=== PATIENT | female | born 1955 | race Caucasian/White ===

== ENCOUNTER 2024-09-17 16:34 | Observation (INO) | payer OTHER ==
--- OUTSIDE RECORDS SUMMARY | 2024-09-17 16:37 | XMS REPORT | Continuity of Care Document ---
Author Name Unknown Address [address] [place] [address] [place] [address] [place] [id number] Care Team Providers Care Investigative Assistant Name Role Phone Robbin Weathers Attending Clinician Unavailable Encounters Start Date/Time End Date/Time Encounter Type Admission Type Attending Clinicians Care Facility Care Department Encounter ID Source 2024-06-21 14:43:01 Outpatient Robbin Weathers [facility] [id number] [facility]
[2024-09-17 17:21] LABS: Specific Gravity 1.024 (1.005-1.030); Urine Bilirubin NEGATIVE (Negative); Urine Blood Negative (Negative); Urine Clarity Clear (Clear); Urine Color Light-Yellow (Yellow); Urine Glucose NEGATIVE (Negative); Urine Ketones NEGATIVE (Negative); Urine Microscopic Reflex YN NO UMIC; Urine Nitrite NEGATIVE (Negative); Urine Protein NEGATIVE (Negative); Urine Urobilinogen Normal (Normal)
--- NOTE | 2024-09-17 19:02 | RAD REPORT ---
EXAMINATION: ONE VIEW CHEST XR CLINICAL INDICATION: PALPITATIONS TECHNIQUE: Frontal chest projection is submitted. Examination is limited by patient positioning and t echnique. COMPARISON: No prior exam. FINDINGS: The lungs are well inflated and clear. The heart is upper limit of normal in size. No displaced fract ures identified.
[2024-09-17 19:15] LABS: Absolute Basophils 0.1 K/uL (0-0.5); Absolute Eosinophils 0.3 K/uL (0-0.5); Absolute Lymphocytes (CBC) 1.7 K/uL (0.7-4.9); Absolute Monocytes 0.6 K/uL (0.1-1.3); Absolute Neutrophil 3.5 K/uL (1.8-8.0); Eosinophils % 5.3 % (0-4.4); Hematocrit 37.8 % (36.0-45.0); Lymphocytes % 26.7 % (15.3-44.8); MCH 28.5 pg (27.0-35.0); MCHC 34.5 g/dL (32.0-36.0); MCV 82.8 fL (80-100); MPV 7.8 fL (7.6-11.3); Monocytes % 10.5 % (3.3-12.3); Neutrophils % 56.5 % (41.7-73.7); Nucleated Red Blood Cells % 0.1 % (0-0); Platelets 341 thou/uL (152-406); RBC Red Blood Cell Count 4.57 M/uL (3.86-4.86); Red Cell Distribution Width 14.4 % (12.1-15.2)
[2024-09-17 19:35] LABS: ALT/SGPT 22 U/L (13-56); AST/SGOT 18 U/L (15-37); Albumin 3.7 g/dL (3.4-5.0); Albumin/Globulin Ratio 0.9 (1.1-1.8); Alkaline Phosphatase 156 U/L (45-117); Anion Gap 8.3 mEq/L (5.0-15.0); BUN Blood Urea Nitrogen 21 mg/dL (7-18); Bicarbonate 28 mEq/L (21-32); Bilirubin Total 0.3 mg/dL (0.2-1.0); Globulin 4.2 g/dL (2.3-3.5); Glomerular Filtration Rate 48 ml/min (=/>90); Glucose Level 107 mg/dL (74-106); Magnesium 2.2 mg/dL (1.6-2.4); NT PRO-BNP 265 pg/mL (<125); Potassium 4.3 mEq/L (3.5-5.1); Protein, Total 7.9 g/dL (6.4-8.2); Sodium Level 138 mEq/L (136-145); Troponin High Sensitivity 10.3 pg/mL (<58.9)
[2024-09-17 19:36] LABS: Bilirubin Direct < 0.2 mg/dL (0-0.2); Bilirubin Indirect, Calculated 0.1 mg/dL (0.2-0.8)
--- NOTE | 2024-09-17 20:23 | EDPHYS ---
Physician Documentation [facility] Name: Alyssa Ford Age: 69 yrs Sex: Female : 1955 Arrival Date: 09/17/2024 Time: 16:34 Bed 23 Private MD: ED Physician Negrito Khan HPI: 09/17 16:49 This 69 yrs old Female presents to ER via Unassigned with complaints of Palpitations, kb Shortness Of Breath, Shoulder Pain, Armpit Pain. 16:49 Pt is a 69 year old female who presents for palpitations, fatigue and intermittent kb chest pain that has been ongoing for 3-4 weeks. States she was seen by [facility] last week, had a holter monitor placed 3-4 days ago. States the symptoms have been increased today. STates she had an echo and EKG in the office. Stress test is scheduled for September 21. States she has been getting flushed/lightheaded upon standing today so she wanted to come make sure everything was ok. . Historical: - Allergies: 17:04 Levaquin; me1 - PMHx: 17:04 Hypertensive disorder; Hypercholesterolemia; me1 17:07 Arthritis; me1 - PSHx: 17:04 Operative procedure on knee; back fusion; excision of skin cancer; me1 - Immunization history:: Adult Immunizations up to date. - Infectious Disease History:: Denies. ROS: 16:49 Constitutional: As per HPI kb Exam: 16:49 Constitutional: This is a well developed, well nourished patient who is awake, alert, kb and in no acute distress. Head/Face: Normocephalic, atraumatic. ENT: Moist Mucous membranes Cardiovascular: Regular rate Respiratory: Respirations even and unlabored. No increased work of breathing. Talking in full sentences Skin: Warm, dry with normal turgor. Normal color. MS/ Extremity: Pulses equal, no cyanosis. Neurovascular intact. Full, normal range of motion. Neuro: Awake and alert, GCS 15, oriented to person, place, time, and situation. Vital Signs: 17:01 BP 190 / 96; Pulse 78; Resp 18; Temp 98.2; Pulse Ox 97% ; Weight 124.74 kg; Height 5 me1 ft. 7 in. ; Pain /10; 09/18 00:20 BP 170 / 85 Supine; Pulse 74; Resp 17 S; Pulse Ox 97% on R/A; ha1 :27 BP 180 / 89 Sitting; Pulse 77; Resp 19 S; Pulse Ox 98% on R/A; ha1 09/17 17:01 Body Mass Index 43.07 (124.74 kg, 170.18 cm) tn1 09/17 17:01 Pain Scale: [place] [facility] [place]DM: 09/17 16:48 Medical Screening Exam initiated kb 17:49 Data reviewed: vital signs, nurses notes. Transition of care: After a detail discussion kb of the patient's case, [facility] ED course: Spoke with Dr. Katz about case. Recommended admission observation dr5 overnight. Discussed case with Dr. Peterson who will go ahead and order stress test for tomorrow morning.. 09/17 16:52 Order name: Basic Metabolic Panel; Complete Time: 19:37 kb 09/17 16:52 Order name: CBC with Diff; Complete Time: 19:27 kb 09/17 16:52 Order name: LFT's; Complete Time: 19:37 kb 09/17 16:52 Order name: Magnesium; Complete Time: 19:37 kb 09/17 16:52 Order name: NT PRO-BNP; Complete Time: 19:37 kb 09/17 16:52 Order name: Troponin HS; Complete Time: 19:37 kb 09/17 16:54 Order name: Urinalysis w/ reflexes; Complete Time: 17:25 kb 09/17 21:05 Order name: Basic Metabolic Panel [facility] 09/17 21:05 Order name: Basic Metabolic Panel; Complete Time: 11:17 EDWA 09/17 21:05 Order name: CBC with Automated Diff EDWA 09/17 21:05 Order name: CBC with Automated Diff; Complete Time: 11:17 EDWA 09/17 21:05 Order name: Lipid Profile [facility] 09/17 21:05 Order name: Lipid Profile; Complete Time: 11:17 EDWA 09/17 21:05 Order name: Troponin High Sensitivity [facility] 09/17 21:05 Order name: Troponin High Sensitivity; Complete Time: 11:17 EDWA 09/17 21:05 Order name: Troponin High Sensitivity [facility] 09/17 21:05 Order name: Troponin High Sensitivity [facility] 09/17 16:52 Order name: XRAY Chest (1 view); Complete Time: 19:02 kb 09/18 11:16 Order name: NM; Complete Time: 11:17 EDMS 09/17 16:52 Order name: EKG; Complete Time: 16:52 kb 09/17 21:05 Order name: CONS Physician Consult EDWA 09/17 16:52 Order name: Cardiac monitoring; Complete Time: 03:01 kb 09/17 16:52 Order name: EKG - Nurse/Tech; Complete Time: 21:44 kb 09/17 16:52 Order name: IV Saline Lock; Complete Time: 19:12 kb 09/17 16:52 Order name: Labs collected and sent; Complete Time: 19:12 kb 09/17 16:52 Order name: O2 Per Protocol; Complete Time: 19:12 kb 09/17 16:52 Order name: O2 Sat Monitoring; Complete Time: 19:12 kb 09/17 16:52 Order name: Orthostatics; Complete Time: 03:01 kb EC:26 Rate is 73 beats/min. Rhythm is regular. QRS Panther is Normal. UT interval is normal at dr5 144 msec. QRS interval is normal at 90 msec. QT interval is normal at 404 msec. Administered Medications: No medications were administered Disposition Summary: 09/17/24 20:22 Hospitalization Ordered Notes: Hospitalization Status: Inpatient Admission dr5 Provider: Rubina Peterson Condition: Stable dr5 Problem: new dr5 Symptoms: are unchanged dr5 Bed/Room Type: Standard dr5 Location: [facility] ER HOLD(09/17/24 22:04) Room Assignment: ERHOLD-(09/17/24 22:04) cg Diagnosis - Chest pain, unspecified dr5 Forms: - Medication Reconciliation Form dr5 - SBAR form dr5 - Leadership Thank You Letter dr5 Addendum: 09/24/2024 21:42 Co-signature as Attending Physician, Negrito Khan MD I agree with the assessment and c osman plan of care. Signatures: Dispatcher [employer] Dora Leyva, DRY TRANSFER WORKER-C DRY TRANSFER WORKER-Ckb Negrito Khan MD MD cha Garcia, Cindy, RN RN Farida Jacob RN RN tn1 Syd Arce, ROSIO-Adan DRY TRANSFER WORKER-Cdr5 Corrections: (The following items were deleted from the chart) 09/17 16:53 16:52 BASIC METABOLIC PANEL+C.LAB.BRZ ordered. EDMS EDMS 16:53 16:52 CBC+H.LAB.BRZ ordered. EDMS EDMS 16:53 16:52 HEPATIC FUNCTION+C.LAB.BRZ ordered. EDMS EDMS 16:53 16:52 MAGNESIUM+C.LAB.BRZ ordered. EDMS EDMS 16:53 16:52 PROBNP+C.LAB.BRZ ordered. EDMS EDMS 16:53 16:52 Troponin High Sensitivity+C.LAB.BRZ ordered. EDMS EDMS 16:55 16:54 Urinalysis+U.LAB.BRZ ordered. EDMS EDMS 22:04 20:22 Telemetry/MedSurg (observation) dr5 cg 22:04 20:22 dr5 cg
--- NOTE | 2024-09-17 20:23 | ER ---
Nurse's Notes [facility] Name: Alyssa Ford Age: 69 yrs Sex: Female : 1955 Arrival Date: 09/17/2024 Time: 16:34 Bed 23 Private MD: Diagnosis: Chest pain, unspecified Presentation: 09/17 17:01 Chief complaint: Patient states: for the past few weeks she has had palpitations, sob, me1 with left shoulder and left axilla pain that is intermittent. Currently under the care of [facility] with a monitor on but states she continues to feel less like herself with more frequent pain and palpitations. Coronavirus screen: Vaccine status: Patient reports receiving the 2nd dose of the covid vaccine. Ebola Screen: No symptoms or risks identified at this time. Initial Sepsis Screen: Does the patient meet any 2 criteria? No. Patient's initial sepsis screen is negative. Does the patient have a suspected source of infection? No. Patient's initial sepsis screen is negative. Risk Assessment: Do you want to hurt yourself or someone else? Patient reports no desire to harm self or others. Onset of symptoms is unknown. 17:01 Method Of Arrival: Ambulatory me1 17:01 Acuity: MANDY 3 me1 Historical: - Allergies: 17:04 Levaquin; me1 - PMHx: 17:04 Hypertensive disorder; Hypercholesterolemia; me1 17:07 Arthritis; me1 - PSHx: 17:04 Operative procedure on knee; back fusion; excision of skin cancer; me1 - Immunization history:: Adult Immunizations up to date. - Infectious Disease History:: Denies. Screenin/28 03:02 [facility] ED Fall Risk Assessment (Adult) History of falling in the last 3 months, ha1 including since admission No falls in past 3 months (0 pts) Confusion or Disorientation No (0 pts) Intoxicated or Sedated No (0 pts) Impaired Gait Yes (1 pt) Mobility Assist Device Used Yes (1 pt) Altered Elimination No (0 pt) Score/Fall Risk Level 3 or more points = High Risk Oriented to surroundings, Maintained a safe environment, Educated pt \T\ family on fall prevention, incl call for assistance when getting out of bed, Hourly rounding (assess needs \T\ fall precautionary measures) done. Abuse screen: Denies threats or abuse. Denies injuries from another. Nutritional screening: No deficits noted. Tuberculosis screening: No symptoms or risk factors identified. Assessment: 09/17 19:50 General: Appears comfortable, Behavior is calm, cooperative. Pain: Denies pain. Neuro: ha1 Level of Consciousness is awake, alert, obeys commands, Oriented to person, place, time, situation. Cardiovascular: Reports palpitations, Capillary refill < 3 seconds Patient's skin is warm and dry. Rhythm is regular. Respiratory: Airway is patent Respiratory effort is even, unlabored, Respiratory pattern is regular, symmetrical, Breath sounds are clear bilaterally. GI: Abdomen is round non-distended, obese. : No signs and/or symptoms were reported regarding the genitourinary system. Derm: Skin is pink, warm \T\ dry. Musculoskeletal: Circulation, motion, and sensation intact. 22:00 Reassessment: Patient and/or family updated on plan of care and expected duration. Pain ha1 level reassessed. Patient is alert, oriented x 3, equal unlabored respirations, skin warm/dry/pink. 23:00 Reassessment: Patient and/or family updated on plan of care and expected duration. Pain ha1 level reassessed. Patient is alert, oriented x 3, equal unlabored respirations, skin warm/dry/pink. Vital Signs: 17:01 BP 190 / 96; Pulse 78; Resp 18; Temp 98.2; Pulse Ox 97% ; Weight 124.74 kg; Height 5 me1 ft. 7 in. ; Pain 4/10; 09/18 00:20 BP 170 / 85 Supine; Pulse 74; Resp 17 S; Pulse Ox 97% on R/A; ha1 00:27 BP 180 / 89 Sitting; Pulse 77; Resp 19 S; Pulse Ox 98% on R/A; ha1 09/17 17:01 Body Mass Index 43.07 (124.74 kg, 170.18 cm) il1 09/17 17:01 Pain Scale: Adult il1 ED Course: 09/17 16:39 Patient arrived in ED. cj3 16:48 Dora Tran FNP-C is PHCP. kb 16:48 Negrito Khan MD is Attending Physician. kb 17:04 Triage completed. me1 17:07 Arm band placed on Patient placed in waiting room. me1 17:50 PHCP role handed off by Dora Tran FNP-C kb 17:50 Syd Arce FNP-C is PHCP. kb 18:54 XRAY Chest (1 view) In Process Unspecified. EDMS 19:12 Basic Metabolic Panel Sent. ha1 19:13 CBC with Diff Sent. ha1 19:13 LFT's Sent. ha1 19:13 Magnesium Sent. ha1 19:13 NT PRO-BNP Sent. ha1 19:13 Troponin HS Sent. ha1 19:13 Inserted saline lock: 24 gauge in left antecubital area, using aseptic technique. Blood ha1 collected. Flushed with 10 mL NS. 19:28 EKG done, by ED staff, reviewed by Syd MUNOZ. oe 19:37 Kathryn Nick, RN is Primary Nurse. ha1 20:00 Patient has correct armband on for positive identification. Bed in low position. Call ha1 light in reach. Side rails up X 1. Adult w/ patient. 20:22 Rubina Peterson MD is Hospitalizing Provider. dr5 21:37 Door closed. Noise minimized. Warm blanket given. Pillow given. Verbal reassurance rv1 given. 09/18 02:00 No provider procedures requiring assistance completed. ha1 02:00 Patient admitted, IV remains in place. ha1 06:46 Inserted saline lock: 24 gauge in right forearm, using aseptic technique. Blood oe collected. Flushed with 10 mL NS. Administered Medications: No medications were administered Outcome: 09/17 20:22 Decision to Hospitalize by Provider. dr5 09/18 13:04 Patient left the ED. cm10 Signatures: Dispatcher [employer] EDMS Dora Tran FNP-C FNP-Ckb Tanner Lizama oe Kathryn Nick RN JOAO ha1 Inna Shaw rv1 Radha Oro RN RN cm10 Farida Jacob RN RN il1 Syd Arce FNP-C FNP-[facility]5 Jennifer [place] 3 Corrections: (The following items were deleted from the chart) 04:08 00:20 BP 170 / 85; Pulse 74bpm; Resp 17bpm; Spontaneous; Pulse Ox 97% RA; ha1 ha1 04:08 00:27 BP 180 / 89; Pulse 77bpm; Resp 19bpm; Spontaneous; Pulse Ox 98% RA; ha1 ha1
[2024-09-17] MEDS ORDERED: ALPRAZOLAM 0.25 MG TABLET PO PRN (20:59)
[2024-09-17] MEDS ORDERED: ACETAMINOPHEN 500 MG TAB PO PRN (20:59)
[2024-09-17] MEDS: AMLODIPINE 5 MG TAB PO ONE (20:59)
[2024-09-17] MEDS ORDERED: MORPHINE 4 MG/ML SYR IV PRN (20:59)
[2024-09-17] MEDS: ATORVASTATIN 40 MG TAB PO SCH (21:00)
--- NOTE | 2024-09-17 21:13 | P.HP ---
Certification for Inpatient Patient admitted to: Observation With expected LOS: <2 Midnights Patient will require the following post-hospital care: None Practitioner: I am a practitioner with admitting privileges, knowledge of patient current condition, hospital course, and medical plan of care. Services: Services provided to patient in accordance with Admission requirements found in Title 42 Section 412.3 of the Code of Federal Regulations Patient History Date of Service: 09/17/24 Reason for admission: Chest pain rule out acute coronary syndrome History of Present Illness: Patient is a 69-year-old female who came to the hospital with chest discomfort. Patient has been having palpitations and she was seen by cardiology a week ago and a Holter monitor and a stress test was ordered as well as an echocardiogram. Patient states she had been doing fairly well but she felt like her symptoms were more frequent so she came to the emergency room. In the ER patient's vital signs are stable hemodynamics are stable blood work is unremarkable. EKG did not show any acute pathology. Nurse practitioner spoke to the director of accounts receivable who wanted to put the patient in for observation. Patient has a history of SVT. She also has been diagnosed with PVCs in the past. However, she did not have any symptoms and she was treated conservatively. Patient is also recently retired from an office job. She has had more time on her hand and she wanted to make sure she was okay and did not want to miss anything concerning. She appears to have a little bit of anxiety regarding her symptoms.. At this time we will repeat labs and will get stress test in AM. If this is negative patient should be stable for discharge home. - Past Medical/Surgical History -: SVT -: Arthritis - Family History Father Family History: Reviewed- Non-Contributory - Social History Smoking Status: Former smoker Alcohol use: No CD- Drugs: No Review of Systems 10-point ROS is otherwise unremarkable Physical Examination - Vital Signs Temperature: 98 F Blood Pressure: 140/90 Pulse: 80 Respirations: 18 Pulse Ox (%): 95 - Physical Exam General: Alert, In no apparent distress, Oriented x3 HEENT: Atraumatic, PERRLA, Mucous membr. moist/pink, EOMI, Sclerae nonicteric Neck: Supple, 2+ carotid pulse no bruit, No LAD, Without JVD or thyroid abnormality Respiratory: Clear to auscultation bilaterally, Normal air movement Cardiovascular: Regular rate/rhythm, Normal S1 S2 Gastrointestinal: Normal bowel sounds, Soft and benign, Non-distended, No tenderness Musculoskeletal: No clubbing, No swelling, No tenderness Integumentary: No rashes Neurological: Normal gait, Normal speech, Normal strength at 5/5 x4 extr, Normal tone, Sensation intact, Cranial nerves 3-12 intact, Normal affect Lymphatics: No axilla or inguinal lymphadenopathy - Studies Laboratory Data (last 24 hrs) 09/17/24 09/17/24 19:08 19:08 WBC 6.20 Hgb 13.0 Hct 37.8 Plt Count 341 Sodium 138 Potassium 4.3 BUN 21 H Creatinine 1.22 H Glucose 107 H Magnesium 2.2 Total Bilirubin 0.3 AST 18 ALT 22 Alkaline Phosphatase 156 H Assessment & Plan - Problems (Diagnosis) (1) Chest pain, rule out acute myocardial infarction Current Visit: Yes Status: Acute (2) PVCs (premature ventricular contractions) Current Visit: Yes Status: Acute - Plan -High-sensitivity troponin will be repeated -Cardiology consultation -Echocardiogram done at outside cardiology office and will do stress test in a.m. -Repeat EKG and monitor on telemetry -Work-up for other etiologies of cardiac chest pain if troponins remain negative; she says she has a lot of pressure in her upper body including her shoulder and upper back. She will need further follow-up for this. -Lipid profile in a.m. -Medication Nurse regarding modifying risk for cardiac disease Discharge Plan: Home Plan to discharge in: 24 Hours - Advance Directives Does patient have a Living Will: No Does patient have a Durable POA for Healthcare: No - Code Status/Comfort Care Code Status Assessed: Yes Code Status: Full Code Critical Care: No Time Spent Managing PTS Care (In Minutes): 45
[2024-09-17 22:14] VITALS: BMI 44.4
[2024-09-18] MEDS ORDERED: MORPHINE 4 MG/ML SYR IV PRN (01:07)
[2024-09-18 06:46] LABS: Absolute Basophils 0.1 K/uL (0-0.5); Absolute Eosinophils 0.3 K/uL (0-0.5); Absolute Lymphocytes (CBC) 1.7 K/uL (0.7-4.9); Absolute Monocytes 0.6 K/uL (0.1-1.3); Absolute Neutrophil 2.9 K/uL (1.8-8.0); Basophils % 0.9 % (0-1.3); Eosinophils % 5.9 % (0-4.4); Hematocrit 38.5 % (36.0-45.0); Hemoglobin 12.6 g/dL (12.0-15.0); MCH 27.6 pg (27.0-35.0); MCHC 32.9 g/dL (32.0-36.0); MCV 84.1 fL (80-100); MPV 7.8 fL (7.6-11.3); Monocytes % 10.4 % (3.3-12.3); Neutrophils % 51.8 % (41.7-73.7); Platelets 328 thou/uL (152-406); RBC Red Blood Cell Count 4.57 M/uL (3.86-4.86); Red Cell Distribution Width 14.2 % (12.1-15.2)
[2024-09-18 07:26] VITALS: O2SAT 98
[2024-09-18] MEDS: ASPIRIN EC 81 MG TAB PO SCH (08:59)
[2024-09-18] MEDS ORDERED: ASPIRIN EC 81 MG TAB PO SCH (09:00)
[2024-09-18] MEDS: ENOXAPARIN 40 MG/0.4 ML SQ SCH (09:00)
[2024-09-18] MEDS ORDERED: REGADENOSON 0.4 MG/5 ML SYR IV ONE (10:25)
--- NOTE | 2024-09-18 10:45 | P.CNS ---
Date of Consult: 09/18/24 Chief Complaint: Chest pain rule out acute coronary syndrome History of Present Illness: Patient with PMH of HTN, HLD, presented with palpitations that has been going on for few months, worse with exertion, also report occasional chest pain, radiate to both shoulders, denies SOB, no SINGH, no syncope. Allergies levofloxacin [From Levaquin] Allergy (Verified 09/17/24 22:12) Itching Home medications list reviewed: Yes - Past Medical/Surgical History Diabetic: No -: SVT -: Arthritis - Family History Father Family History: Reviewed- Non-Contributory - Social History Alcohol use: No CD- Drugs: No Caffeine use: Yes Review of Systems 10-point ROS is otherwise unremarkable Physical Examination Temp Pulse Resp BP Pulse Ox 97.8 F 86 17 160/98 H 98 09/18/24 07:21 09/18/24 07:21 09/18/24 07:21 09/18/24 07:21 09/18/24 07:21 General: Alert, In no apparent distress HEENT: Atraumatic, PERRLA, Mucous membr. moist/pink, EOMI, Sclerae nonicteric Neck: Supple, 2+ carotid pulse no bruit, No LAD, Without JVD or thyroid abnormality Respiratory: Clear to auscultation bilaterally, Normal air movement Cardiovascular: Regular rate/rhythm, Normal S1 S2 Gastrointestinal: Normal bowel sounds, No tenderness Musculoskeletal: No tenderness Integumentary: No rashes Neurological: Normal gait, Normal speech, Normal tone, Normal affect Lymphatics: No axilla or inguinal lymphadenopathy Laboratory Data (last 24 hrs) 09/17/24 09/17/24 19:08 19:08 WBC 6.20 Hgb 13.0 Hct 37.8 Plt Count 341 Sodium 138 Potassium 4.3 BUN 21 H Creatinine 1.22 H Glucose 107 H Magnesium 2.2 Total Bilirubin 0.3 AST 18 ALT 22 Alkaline Phosphatase 156 H - Problems (1) Palpitations Current Visit: Yes Status: Acute Plan: patient is on Norvasc, advise to stop and switch to Diltazem 120 mg po daily patient is wearing a holter monitor continue to monitor on tele (2) HTN (hypertension) Current Visit: Yes Status: Acute Plan: stop Norvasc start Diltzem 120 mg po daily continue losartan continue to monitor. (3) HLD (hyperlipidemia) Current Visit: Yes Status: Acute Plan: continue lipitor 40 mg daily. (4) Chest pain, rule out acute myocardial infarction Current Visit: Yes Status: Acute Plan: troponin negative. agree with stress test. ASA 81 mg daily
--- NOTE | 2024-09-18 11:15 | RAD REPORT ---
EXAM: Nuclear medicine cardiac perfusion examination with ejection fraction HISTORY: Chest pain Chest pain TECHNIQUE: Rest images: 10.7 mCi technetium 99m sestamibi Stress images: 30.9 mCi of technetium 99m sestamibi COMPARISON: None. FINDINGS: Tomographic images: Small fixed defect is seen LV apex on both rest and stress imaging. No finding to suspect hibernating myocardium. Ejection fraction of 58%. EDV: 108 mL ESV: 45 mL LHR: 0.32 TID: 1.1 IMPRESSION: No evidence of stress induced ischemia. 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
[2024-09-18 11:38] VITALS: BP 144/67; TEMP 98.4
--- NOTE | 2024-09-18 12:08 | EKG ---
Test Date: 2024-09-17 Test Time: 19:26:48 [employer] Maker Plaster: CECY MEASUREMENT RESULTS: Intervals: Rate: 73 IL: 144 QRSD: 90 QT: 404 QTc: 445 [place]: P: 68 IL: 144 QRS: 54 T: 82 INTERPRETIVE STATEMENTS: Sinus rhythm with occasional premature ventricular complexes Nonspecific ST and T wave abnormality Abnormal ECG No previous ECG available for comparison Electronically Signed On 09-18-24 12:06:34 CDT by Mariusz Mckee
--- NOTE | 2024-09-18 12:23 | P.DS ---
Admission Date: 09/17/24 Discharge Date: 09/18/24 Disposition: ROUTINE DISCHARGE Discharge Condition: GOOD Reason for Admission: Chest pain rule out acute coronary syndrome Consultations: Cardiology - Dr. Mckee Brief History of Present Illness: 69yo F, PMH: HTN, HLD Patient who came to the hospital with chest discomfort. Patient has been having palpitations and she was seen by cardiology a week ago and a Holter monitor and a stress test was ordered as well as an echocardiogram. Patient states she had been doing fairly well but she felt like her symptoms were more frequent so she came to the emergency room. In the ER patient's vital signs are stable hemodynamics are stable blood work is unremarkable. EKG did not show any acute pathology. Nurse practitioner spoke to the sheep herder who wanted to put the patient in for observation. Patient has a history of SVT. She also has been diagnosed with PVCs in the past. However, she did not have any symptoms and she was treated conservatively. Patient is also recently retired from an office job. She has had more time on her hand and she wanted to make sure she was okay and did not want to miss anything concerning. She appears to have a little bit of anxiety regarding her symptoms.. At this time we will repeat labs and will get stress test in AM. If this is negative patient should be stable for discharge home. Hospital Course: Problem List: Palpitations Chest discomfort Hypertension Hyperlipidemia Physician discharge instructions: Patient presented with chest pain, intermittent palpitations. Cardiac work up this hospitalization was negative. Troponin's were negative. EKG was without STEMI criteria. Dr. Mckee, cardiology recommended stress test to further evaluate which was negative for stress induced ischemia. 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 No further cardiac work up. She presented to the ED with a holter monitor, ordered by her sheep herder last week. Follow up with cardiology once complete to review results. Patient was feeling better, chest discomfort improved, and was deemed stable for discharge. Dr. Mckee recommended stopping amlodipine and starting diltiazem. Medications: Start: diltiazem 120mg daily Stop: Amlodipine otherwise continue other home medications as previously prescribed. Follow up: PCP 3-5 days Cardiology 2-4 weeks Please call to schedule / confirm appointments Physical Exam: GEN: Alert, oriented, NAD CV: Regular rate and rhythm, no edema Pulm: Nonlabored respirations on room air, clear bilaterally ABD: soft, nontender, nondistended Neuro: Normal speech, normal affect Vital Signs/Physical Exam: Temp Pulse Resp BP Pulse Ox 98.4 F 75 17 144/67 H 99 09/18/24 11:37 09/18/24 11:37 09/18/24 11:37 09/18/24 11:37 09/18/24 11:37 Laboratory Data at Discharge: WBC 5.60 thou/uL (4.3-10.9) 09/18/24 06:27 Hgb 12.6 g/dL (12.0-15.0) 09/18/24 06:27 Hct 38.5 % (36.0-45.0) 09/18/24 06:27 Plt Count 328 thou/uL (152-406) 09/18/24 06:27 Sodium 139 mEq/L (136-145) 09/18/24 06:27 Potassium 4.0 mEq/L (3.5-5.1) 09/18/24 06:27 BUN 20 mg/dL (7-18) H 09/18/24 06:27 Creatinine 1.03 mg/dL (0.55-1.02) H 09/18/24 06:27 Glucose 98 mg/dL (74-106) 09/18/24 06:27 Magnesium 2.2 mg/dL (1.6-2.4) 09/17/24 19:08 Total Bilirubin 0.3 mg/dL (0.2-1.0) 09/17/24 19:08 AST 18 U/L (15-37) 09/17/24 19:08 ALT 22 U/L (13-56) 09/17/24 19:08 Alkaline Phosphatase 156 U/L (45-117) H 09/17/24 19:08 Triglycerides 74 mg/dL (<150) 09/18/24 06:27 Cholesterol 173 mg/dL (<200) 09/18/24 06:27 HDL Cholesterol 71 mg/dL (40-60) H 09/18/24 06:27 Cholesterol/HDL Ratio 2.44 09/18/24 06:27 Home Medications: Diltiazem Cd [Cardizem Cd*] 120 mg PO DAILY 30 Days #30 cap 09/18/24 New Medications: Diltiazem Cd [Cardizem Cd*] 120 mg PO DAILY 30 Days #30 cap Physician Discharge Instructions: Physician discharge instructions: Patient presented with chest pain, intermittent palpitations. Cardiac work up this hospitalization was negative. Troponin's were negative. EKG was without STEMI criteria. Dr. Mckee, cardiology recommended stress test to further evaluate which was negative for stress induced ischemia. 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 No further cardiac work up. She presented to the ED with a holter monitor, ordered by her sheep herder last week. Follow up with cardiology once complete to review results. Patient was feeling better, chest discomfort improved, and was deemed stable for discharge. Dr. Mckee recommended stopping amlodipine and starting diltiazem. Medications: Start: diltiazem 120mg daily Stop: Amlodipine otherwise continue other home medications as previously prescribed. Follow up: PCP 3-5 days Cardiology 2-4 weeks Please call to schedule / confirm appointments Followup: NONE,NONE [Primary Care Provider] - Time spent managing pt's care (in minutes): 45
[2024-09-18] MEDS: DILTIAZEM HCL 120 MG SR CAP PO SCH (13:00)
--- NOTE | 2024-09-18 13:38 | TREADPHA ---
DX: CHEST PAIN, RULE OUT ACUTE CORONARY SYNDROME, PALPITATIONS Date of Study: 09/18/2024 Ht: 5' 6 " Wt: 275 lb 0 oz Consulting Physician: LUCY MEDICATIONS: TYLENOL, XANAX, ASPIRIN, LIPITOR, LOVENOX, COZAAR, MORPHINE HISTORY: 69 YEAR OLD FEMALE WITH COMPLAINTS OF CHEST PAIN AND PALPITATIONS. HISTOFY OF HYPERTENSION, HYPERLIPIDEMIA, LIPODEMIA, GERD, ARTHRITIS PHYSICIAL EXAMINATION: RESTING B.P.: 136/70 RESTING H.R.: 67 RESTING EKG: SINUS RHYTHM PROTOCOL: PARMACOLOGIC EXERCISE TIME: 3:30 B.P. AT PEAK STRESS: 164.76 IMPRESSION: LEXISCAN INJECTED. CARDIOLITE INJECTED - SEE NUCLEAR MEDICINE REPORT. PREMATURE VENTRICULAR COMPLEXES NOTED WITH LEXISCAN. COMPLAINTS OF CHEST TIGHTNESS. NO VENTRICULAR TACHYCARDIA. NO ARRHYTHMIAS NOTED. CAFFEINE PROVIDED.
[2024-09-18] MEDS ORDERED: LOSARTAN POTASSIUM 50 MG TABLET PO SCH (18:00)
== END 2024-09-18 13:10 | disposition home or self-care (01) ==
LOC: ER 16:34 → ERHOLD 20:59
PROVIDERS: ADMIT Hospitalist; ATTEND Hospitalist
DX: R07.9 Chest pain, unspecified (principal); R00.2 Palpitations; I49.3 Ventricular premature depolarization; I10 Essential (primary) hypertension; E78.5 Hyperlipidemia, unspecified; Z88.1 Allergy status to other antibiotic agents
CPT/HCPCS: 93005; 93017; 85025 ×2; 80048 ×2; 36415; 83735; 80061; 80076; 81003; 84484 ×2; 83880; 71045; 78452; 99283; J2785; A9500; G0378 ×3